=== PATIENT | male | born 1955 | race Caucasian/White ===

== ENCOUNTER 2018-01-18 18:25 | Outpatient (CLI) | payer OTHER | END 2018-01-18 19:10 | disposition home or self-care (01) | LOC: LAB 18:25 | DX: R97.20 Elevated prostate specific antigen [PSA] (principal) ==

== ENCOUNTER 2018-02-08 07:08 | Outpatient (CLI) | payer OTHER | END 2018-02-08 07:22 | disposition home or self-care (01) | LOC: SONOGRAMA 07:08 | DX: R97.20 Elevated prostate specific antigen [PSA] (principal) ==

== ENCOUNTER 2022-10-10 20:17 | Emergency (ER) | payer OTHER ==
[~2022-10-10] VITALS: Ht 175.3 cm; Wt 83.9 kg
[2022-10-10] MEDS ORDERED: CARVEDILOL12.5 M1 PO (20:36)
[2022-10-10] MEDS ORDERED: METFORMIN HCL500 M4 PO (20:36)
[2022-10-10] MEDS ORDERED: SIMVASTATIN40 MG PO (20:36)
== END 2022-10-11 00:02 | disposition home or self-care (01) ==
LOC: ER 20:17
DX: H81.10 Benign paroxysmal vertigo, unspecified ear (principal); E86.0 Dehydration; R11.10 Vomiting, unspecified; E11.22 Type 2 diabetes mellitus with diabetic chronic kidney disease; I13.10 Hypertensive heart and chronic kidney disease without heart failure, with stage 1 through stage 4 chronic kidney disease, or unspecified chronic kidney disease; N18.2 Chronic kidney disease, stage 2 (mild); Z79.84 Long term (current) use of oral hypoglycemic drugs
CPT/HCPCS: 36415; 96372; 99284; J2765